=== PATIENT | female | born 1985 | race Caucasian/White ===

== ENCOUNTER 2017-03-19 03:06 | Outpatient (CLI) | payer MEDICAID ==
[2017-03-19] MEDS ORDERED: VISTARIL PO ONE (05:32)
[2017-03-20 10:22] VITALS: BP 117/59
== END 2017-03-19 06:06 | disposition home or self-care (01) ==
LOC: TRG 03:06
PROVIDERS: ATTEND Obstetrics & Gynecology Gynecology
DX: O48.0 Post-term pregnancy (principal); Z3A.40 40 weeks gestation of pregnancy
CPT/HCPCS: Q0177

== ENCOUNTER 2017-03-19 22:16 | Inpatient (IN) | payer MEDICAID ==
[2017-03-19] MEDS ORDERED: PITOCin/NS 30 UNIT/500ML 30 UNITS/500 ML BAG IV SCH (23:45)
[2017-03-19] MEDS ORDERED: PITOCin/NS 20 UNIT/1000ML DRIP 20 UNITS/1,000 ML BAG IV SCH (23:45)
[2017-03-19] MEDS ORDERED: BRETHINE SUB-Q PRN (23:53)
[2017-03-19] MEDS ORDERED: STADOL IV PRN (23:53)
[2017-03-19] MEDS ORDERED: NARCAN 0.4 MG/1 ML IV PRN (23:53)
[2017-03-19] MEDS ORDERED: SUBLIMAZE IV PRN (23:53)
[2017-03-19] MEDS ORDERED: XYLOCAINE 2% INFILTRATI ONE (23:53)
[2017-03-19] MEDS ORDERED: POLYCILLIN/NS 2 GM/100 ML 2 GM/100 ML BAG IV ONE (23:53)
[2017-03-19] MEDS ORDERED: BRETHINE IVP PRN (23:53)
[2017-03-19] MEDS ORDERED: MINERAL OIL PO PRN (23:53)
[2017-03-19] MEDS ORDERED: ePHEDrine SULFATE IV PRN (23:53)
[2017-03-19] MEDS ORDERED: ZOFRAN IV PRN (23:53)
--- NOTE | 2017-03-19 23:59 | History and Physical Report ---
History of Present Illness Date of examination: 03/19/17 Date of admission: 03/19/17 23:05 Chief complaint: SROM History of present illness: Pt is a 31yo HF EDC 03/15/17; EGA 40 5/7 weeks presents to L&D complaining of SROM clear fluid @ 2100 followed by irregular contractions. She received care at [facility] since 18 weeks and course has been uneventful. records are available and GBS is Negative. Past History Past Medical History: no pertinent history Past Surgical History: no surgical history Family/Genetic History: diabetes, hypertension Social history: no significant social history - Obstetrical History Expected Date of Delivery: 03/15/17 Actual Gestation: 40 Week(s) 5 Day(s) : 1 Medications and Allergies Allergies Allergy/AdvReac Type Severity Reaction Status Date / Time No Known Allergies Allergy Unverified 03/19/17 03:14 Home Medications Medication Instructions Recorded Confirmed Last Taken Type Ferrous Sulfate [Iron] 325 mg PO BID 03/19/17 03/20/17 03/18/17 History Vit No.130/Iron/Folic 1 each PO QDAY 03/19/17 03/20/17 03/18/17 10:00 History [ Tablet] Active Meds: Active Medications Butorphanol Tartrate (Stadol) 2 mg IV Q2H PRN PRN Reason: Pain , Severe (7-10) Ephedrine Sulfate (Ephedrine Sulfate) 10 mg IV Q2M PRN PRN Reason: Hypotension Fentanyl (Sublimaze) 100 mcg IV Q2H PRN PRN Reason: Labor Pain Ampicillin Sodium (Polycillin/Ns 1 Gm/50 Ml) 1 gm in 50 mls @ 100 mls/hr IV Q4HR MADELIN PRN Reason: Protocol Ampicillin Sodium (Polycillin/Ns 2 Gm/100 Ml) 2 gm in 100 mls @ 100 mls/hr IV ONCE ONE PRN Reason: Protocol Stop: 03/20/17 00:52 Lactated Ringer's (Lactated Ringers) 1,000 mls @ 125 mls/hr IV DIRECT MADELIN Oxytocin/Sodium Chloride (Pitocin/Ns 20 Unit/1000ml Drip) 20 units in 1,000 mls @ 125 mls/hr IV DIRECT MADELIN Oxytocin/Sodium Chloride (Pitocin/Ns 30 Unit/500ml) 30 units in 500 mls @ 2 mls /hr IV TITR MADELIN PRN Reason: Protocol Oxytocin/Sodium Chloride (Pitocin/Ns 30 Unit/500ml) 30 units in 500 mls @ 1 mls /hr IV TITR MADELIN; 1 MILLIUNITS/MIN PRN Reason: Protocol Lidocaine (Xylocaine 2%) 20 ml INFILTRATI ONCE ONE Stop: 03/19/17 23:54 Mineral Oil (Mineral Oil) 30 ml PO QHS PRN PRN Reason: Constipation Naloxone HCl (Narcan 0.4 Mg/1 Ml) 0.1 mg IV Q2MIN PRN PRN Reason: Res Rate </= 8 or 02 SAT < 92% Ondansetron HCl (Zofran) 4 mg IV Q8H PRN PRN Reason: Nausea And Vomiting Terbutaline Sulfate (Brethine) 0.25 mg SUB-Q ONCE PRN PRN Reason: Hyperstimulation/Hypertonicity Terbutaline Sulfate (Brethine) 0.25 mg IVP ONCE PRN PRN Reason: Hyperstimulation/Hypertonicity Review of Systems All systems: negative - Vital Signs Vital signs: Vital Signs Pulse BP 88 126/88 03/19/17 22:53 03/19/17 22:53 Temp Pulse Resp BP Pulse Ox 96 H 126/88 93 03/19/17 23:31 03/19/17 22:53 03/19/17 23:31 - Physical Exam Breasts: Positive: deferred Cardiovascular: Regular rate Lungs: Positive: Clear to auscultation Abdomen: Positive: normal appearance Genitourinary (Female): Positive: normal external genitalia Uterus: Positive: enlarged Extremities: Positive: normal - Obstetrical FHR: category 1 Uterine Contraction Monitor Mode: External Cervical Dilatation: 3 Cervical Effacement Percentage: 100 station: -2 Uterine Contraction Pattern: Irregular Uterine Tone Measurement Phase: Contraction Uterine Contraction Intensity: Mild Results Result Diagrams: 03/19/17 23:55 All other labs normal. Assessment and Plan - Patient Problems (1) 40 weeks gestation of Onset Date: 03/20/17 Current Visit: Yes Status: Acute Plan to address problem: A: IUP @ 40 5/7 weeks in labor GBS Negative P: Admit to L&D for expectant vaginal delivery
[2017-03-20] MEDS: LACTATED RINGERS 1,000 ML IV SCH ×2 (00:18→05:58)
[2017-03-20] MEDS: PITOCin/NS 30 UNIT/500ML 30 UNITS/500 ML BAG IV SCH ×6 (00:25→05:59)
[2017-03-20 00:40] LABS: Hematocrit 35.2 % (30.3-42.9); Hemoglobin 11.1 gm/dl (10.1-14.3); Mean Corpuscular HGB Conc 32 % (30-34); Mean Corpuscular Hemoglobin 26 pg (28-32); Mean Corpuscular Volume 84 fl (79-97); Platelet Count 175 K/mm3 (140-440); Red Blood Count 4.19 M/mm3 (3.65-5.03); Red Cell Distribution Width 14.2 % (13.2-15.2); White Blood Count 16.9 K/mm3 (4.5-11.0)
[2017-03-20] MEDS ORDERED: ePHEDrine SULFATE IV PRN (01:44)
[2017-03-20] MEDS ORDERED: NARCAN 2 MG/2 ML IV PRN (01:44)
--- NOTE | 2017-03-20 01:44 | Anesthesia Consultation ---
Anesthesia Consult and Med Hx Date of service: 03/20/17 - Airway Anesthetic Teeth Evaluation: Good ROM Head & Neck: Adequate Mental/Hyoid Distance: Adequate Mallampati Class: Class II Intubation Access Assessment: Good - Pulmonary Exam CTA: Yes - Cardiac Exam Cardiac Exam: No Murmur - Pre-Operative Health Status ASA Pre-Surgery Classification: ASA2 Proposed Anesthetic Plan: Epidural - Pulmonary Hx Asthma: No COPD: No Hx Pneumonia: No - Cardiovascular System Hx Hypertension: No - Central Nervous System Hx Seizures: No Hx Psychiatric Problems: No - Endocrine Hx Renal Disease: No Hx End Stage Renal Disease: No Hx Hypothyroidism: No Hx Hyperthyroidism: No - Hematic Hx Anemia: Yes (iron bid) Hx Sickle Cell Disease: No - Other Systems Hx Alcohol Use: No
[2017-03-20] MEDS ORDERED: fentaNYL-BUPIV 2 MCG/ML-0.125% 200 MCG/100 ML BAG EPIDURAL SCH (02:00)
[2017-03-20] MEDS ORDERED: POLYCILLIN/NS 1 GM/50 ML 1 GM/50 ML BAG IV SCH (03:55)
[2017-03-20] MEDS ORDERED: NITRATEST PAPER MC ONE (04:09)
--- NOTE | 2017-03-20 10:22 | Procedure Note ---
OB Delivery Note - Delivery Date of Delivery: 03/20/17 Surgeon: HIMANSHU ESTEBAN Estimated blood loss: 200cc - Vaginal Delivery presentation: vertex Delivery position: OA Intrapartum events: none Delivery induction: none Delivery augmentation: rupture of membranes Delivery monitor: external FHT, external uterine Route of delivery: Delivery placenta: spontaneous Delivery cord: 3 umbilical vessels Episiotomy: none Delivery laceration: 1st degree (left labia) Delivery repair: vicryl Anesthesia: epidural Delivery comments: delivered OA and placed on Mom's chest for [id number] bonding and delayed cord clamping. - A at 1 minute: 8 at 5 minutes: 9 Gender: Female ([id number])
[2017-03-20] MEDS ORDERED: PHENERGAN PR PRN (16:55)
[2017-03-20] MEDS ORDERED: BENADRYL PO PRN (16:55)
[2017-03-20] MEDS ORDERED: PHENERGAN PO PRN (16:55)
[2017-03-20] MEDS ORDERED: ZOFRAN IV PRN (16:55)
[2017-03-20] MEDS ORDERED: TYLENOL PO PRN (16:55)
[2017-03-20] MEDS ORDERED: MILK OF MAGNESIA PO PRN (16:55)
[2017-03-20] MEDS ORDERED: DULCOLAX PR PRN (16:55)
[2017-03-20] MEDS ORDERED: TUCKS PAD TP PRN (16:55)
[2017-03-20] MEDS ORDERED: NORCO 5/325 PO PRN (16:55)
[2017-03-20] MEDS ORDERED: PITOCin/NS 20 UNIT/1000ML DRIP 20 UNITS/1,000 ML BAG IV SCH (17:00)
[2017-03-20] MEDS ORDERED: SODIUM CHLORIDE FLUSH SYRINGE 10 ML IV NR (17:00)
[2017-03-20] MEDS: MOTRIN PO SCH ×2 (18:12→23:41)
[2017-03-20] MEDS: COLACE PO SCH (22:26)
[2017-03-20] MEDS: FEOSOL PO SCH (22:27)
[2017-03-21] MEDS ORDERED: M-M-R II VACCINE SUB-Q ONE (06:00)
[2017-03-21] MEDS ORDERED: BOOSTRIX IM ONE (06:00)
[2017-03-21] MEDS: SENOKOT S PO SCH (06:03)
[2017-03-21] MEDS: MOTRIN PO SCH ×4 (06:03→23:06)
[2017-03-21 06:38] LABS: Hematocrit 27.3 % (30.3-42.9); Hemoglobin 9.1 gm/dl (10.1-14.3)
[2017-03-21] MEDS ORDERED: PRENATAL VITAMIN PO SCH (10:00)
--- NOTE | 2017-03-21 10:17 | Progress Note ---
Assessment and Plan - Patient Problems (1) 40 weeks gestation of Onset Date: 03/20/17 Current Visit: Yes Status: Resolved (2) (normal spontaneous vaginal delivery) Onset Date: 03/21/17 Current Visit: Yes Status: Resolved Plan to address problem: A: S/P - PPD #1 Doing well Asymptomatic anemia - stable P: May go home today. Subjective - Subjective Date of service: 03/21/17 Principal diagnosis: s/p - PPD #1 Interval history: Pt is feeling well without complaints. Bleeding improved. Patient reports: appetite normal, voiding normally, pain well controlled, flatus , ambulating normally : doing well, nursing well Objective - Vital Signs Latest vital signs: Vital Signs Temp Pulse Resp BP BP Pulse Ox 03/21/17 08:35 98.6 F 78 20 101/67 03/21/17 06:03 16 03/21/17 01:31 97.6 F 78 20 102/60 98 03/21/17 00:41 16 03/20/17 23:41 16 03/20/17 20:25 98.5 F 86 20 110/62 99 03/20/17 16:21 98.7 F 96 H 20 118/60 98 03/20/17 12:05 99.1 F 80 20 112/69 03/20/17 11:36 93 H 122/60 03/20/17 10:54 93 H 121/65 03/20/17 10:39 102 H 123/67 03/20/17 10:38 99.3 F 20 Intake and Output 03/20/17 03/21/17 03/21/17 22:59 06:59 14:59 Intake Total 120 240 360 Output Total 1000 Balance -880 240 360 Intake: Oral 120 240 360 Output: Urine 1000 Void 1000 Other: Total, Intake Amount 120 120 360 Total, Output Amount 400 # Voids Void 1 1 - Exam Breasts: Present: deferred Cardiovascular: Present: Regular rate Lungs: Present: Clear to auscultation Abdomen: Present: normal appearance, soft Uterus: Present: normal, firm, fundal height below umbilicus Extremities: Present: normal - Labs Labs: Abnormal lab results 03/21/17 Range/Units 05:58 Hgb 9.1 L (10.1-14.3) gm/dl Hct 27.3 L D (30.3-42.9) % Laboratory Tests 03/19/17 03/19/17 03/21/17 23:55 23:55 05:58 WBC 16.9 H RBC 4.19 Hgb 11.1 9.1 L Hct 35.2 27.3 L D MCV 84 MCH 26 L MCHC 32 RDW 14.2 Plt Count 175 Blood Type A POSITIVE Antibody Screen Negative
[2017-03-21] MEDS: FEOSOL PO SCH ×2 (10:32→22:26)
[2017-03-21] MEDS: COLACE PO SCH ×2 (10:32→22:27)
--- NOTE | 2017-03-21 10:42 | Discharge Summary ---
Providers - Providers Date of Admission: 03/19/17 23:05 Date of discharge: 03/21/17 Attending physician: HIMANSHU ESTEBAN Primary care physician: HIMANSHU ESTEBAN Hospitalization Reason for admission: active labor, IUP at term Delivery: Episiotomy: none Laceration: 1st degree Other procedures: none complications: none Discharge diagnosis: IUP at term delivered [place] baby: female Hospital course: Unremarkable. Condition at discharge: Good Disposition: DC-01 TO HOME OR SELFCARE - Discharge Diagnoses (1) 40 weeks gestation of Status: Resolved (2) (normal spontaneous vaginal delivery) Status: Resolved Plan - Discharge Medications Prescriptions: Ferrous Sulfate [Feosol 325 MG tab] 325 mg PO BID #60 tablet Ibuprofen [Motrin 600 MG tab] 600 mg PO Q6H #30 tablet Vit-Fe Fumar-FA [ Vitamin] 1 each PO QDAY #30 tablet - Provider Discharge Summary Activity: routine, no sex for 6 weeks, no heavy lifting 4 weeks, no strenuous exercise Diet: routine Instructions: routine Additional instructions: [] Smoking cessation referral if applicable(refer to patient education folder for contact #) [] Refer to [facility]'s [facility] Center Booklet Call your doctor immediately for: * Fever > 100.5 * Heavy vaginal bleeding ( >1 pad per hour) * Severe persistent headache * Shortness of breath * Reddened, hot, painful area to leg or breast * Drainage or odor from incision. * Keep incision clean and dry at all times and follow doctor's instructions regarding bathing/showering - Follow up plan Follow up: HIMANSHU ESTEBAN MD [Primary Care Provider] - 6 Weeks
[2017-03-22] MEDS: MOTRIN PO SCH (05:38)
[2017-03-22] MEDS: SENOKOT S PO SCH (06:13)
[2017-03-22 15:07] VITALS: BP 131/81
== END 2017-03-22 14:40 | disposition home or self-care (01) | DRG 775 ==
LOC: TRG 22:16 → LD 23:05 → TRG 23:05 → OB 03-20 12:11
PROVIDERS: ADMIT Obstetrics & Gynecology; ATTEND Obstetrics & Gynecology
PROC: 10E0XZZ Delivery of Products of Conception, External Approach (ICD-10-PCS; principal; 2017-03-20)
PROC: 0HQ9XZZ Repair Perineum Skin, External Approach (ICD-10-PCS; 2017-03-20)
PROC: 3E0R3BZ Introduction of Anesthetic Agent into Spinal Canal, Percutaneous Approach (ICD-10-PCS; 2017-03-20)
PROC: 00HU33Z Insertion of Infusion Device into Spinal Canal, Percutaneous Approach (ICD-10-PCS; 2017-03-20)
PROC: 3E0234Z Introduction of Serum, Toxoid and Vaccine into Muscle, Percutaneous Approach (ICD-10-PCS; 2017-03-21)
DX: O99.02 Anemia complicating childbirth (principal); Z3A.40 40 weeks gestation of pregnancy; Z37.0 Single live birth; D64.9 Anemia, unspecified; Z82.49 Family history of ischemic heart disease and other diseases of the circulatory system; Z83.3 Family history of diabetes mellitus; O70.0 First degree perineal laceration during delivery; Z23 Encounter for immunization
CPT/HCPCS: 36415; 85014; 85018; 85027; 86850; 86900; 86901; 99211; G0463; J0290; J2590; J3010; J7120